=== PATIENT | female | born 1955 | race Caucasian/White ===

== ENCOUNTER → 2017-08-10 | Outpatient (CLI) | payer OTHER ==
[~2017-08-10] MED LIST: Crutch1 EACH MISC; DULO30 PO; METO25ER PO; PARO10 PO; Percocet 5-3251 EACH PO; SIMV10 PO; TRIHYD5075 PO; VENL25; ZESTORETIC 20-121 EA
[2017-08-12 16:01] LABS: HPV Genotype 16 Not Detected (NOTDET); HPV Genotype 18 Not Detected (NOTDET)
[2017-08-31 10:29] LABS: HPV High Risk Other Not Detected (NOTDET)
== END ==
LOC: LAB 09:00
PROVIDERS: Family Medicine
DX: Z01.419 Encounter for gynecological examination (general) (routine) without abnormal findings (principal)
CPT/HCPCS: 87624; G0145

== ENCOUNTER → 2017-09-23 | Outpatient (CLI) | payer OTHER | END | disposition home or self-care (01) | LOC: LAB EV 12:22 | DX: J02.9 Acute pharyngitis, unspecified (principal) | CPT/HCPCS: 87070 ==

== ENCOUNTER 2021-02-04 19:17 | Emergency (ER) | payer OTHER ==
[~2021-02-04] VITALS: Ht 162.6 cm; Wt 81.7 kg
[2021-02-04] MEDS ORDERED: Ativan0.5 MG PO (22:09)
== END 2021-02-04 22:45 | disposition home or self-care (01) ==
LOC: ER 19:17
DX: F41.0 Panic disorder [episodic paroxysmal anxiety] (principal); I10 Essential (primary) hypertension; Z91.09 Other allergy status, other than to drugs and biological substances; Z79.899 Other long term (current) drug therapy; Z91.041 Radiographic dye allergy status
CPT/HCPCS: 99283

== ENCOUNTER → 2022-04-29 | Outpatient (CLI) | payer OTHER, MEDICARE ==
[~2022-04-29] MED LIST changes: +Ativan0.5 MG PO
== END ==
LOC: PLD 11:46 → LAB SHORT 11:46
DX: D22.4 Melanocytic nevi of scalp and neck (principal); L81.9 Disorder of pigmentation, unspecified; L81.4 Other melanin hyperpigmentation
CPT/HCPCS: 88305

== ENCOUNTER → 2022-05-26 | Outpatient (CLI) | payer OTHER | END | disposition home or self-care (01) | LOC: LAB SHORT 12:55 → PLD 12:55 | DX: D22.4 Melanocytic nevi of scalp and neck (principal) | CPT/HCPCS: 88305 ==

== ENCOUNTER → 2022-06-11 | Outpatient (CLI) | payer OTHER ==
[2022-06-12 15:10] LABS: HPV 16 Negative (Negative); HPV 18 Negative (Negative); HPV OTHER HR TYPES Negative (Negative)
== END | disposition home or self-care (01) ==
LOC: RAD SHORT 11:25
PROVIDERS: Obstetrics & Gynecology
DX: Z01.419 Encounter for gynecological examination (general) (routine) without abnormal findings (principal)
CPT/HCPCS: 87624; G0123

== ENCOUNTER → 2022-08-31 | Outpatient (CLI) | payer OTHER | LOC: LAB SHORT 12:49 → LAB 12:49 | DX: N95.0 Postmenopausal bleeding (principal) | CPT/HCPCS: 88305; 88341; 88342 ==

== ENCOUNTER → 2025-05-28 | Outpatient (CLI) | payer OTHER ==
[~2025-05-28] MED LIST changes: +AMLODIPINE BESYL5 MG PO; +LISI20 PO; +METO100ER PO; +Simvastatin20 MG PO; +VENL75ER PO
== END | disposition home or self-care (01) ==
LOC: LAB SHORT 15:58 → LAB 15:58
PROVIDERS: Obstetrics & Gynecology
DX: Z01.419 Encounter for gynecological examination (general) (routine) without abnormal findings (principal)
CPT/HCPCS: 87624; G0145